=== PATIENT | male | born 1950 | race Caucasian/White ===

== ENCOUNTER 2016-08-09 18:42 | Emergency (ER) | payer MEDICARE, OTHER ==
[2016-08-09 19:08] VITALS: BP 155/73
--- NOTE | 2016-08-09 19:21 | EDM.PDOC ---
[id number]: STONE Time Seen by Provider: 08/09/16 19:05 Source of Information: Reports: Patient, Family History Limitations: Reports: No Limitations - History of Present Illness INITIAL COMMENTS - FREE TEXT/NARRATIVE: 66-year-old male with ongoing intermittent back pain, suprapubic pain and urinary symptoms had a sudden onset of right flank pain one month ago, was evaluated in the clinic and found to have hematuria but also had strained his back at that same time and they took a back x-ray and figured it was from his back injury. He has had some persistent urinary symptoms since and is been treated with antibiotics and Pyridium, was in the clinic yesterday and received refills. His pain is mild at this time. He has not had blood work or CT scans. No fevers or chills. Denies nausea or vomiting at this time. No further trauma. He did have a prostate exam yesterday and was told it was "fine". Onset: Sudden (One month ago) Severity: Moderate Associated Symptoms: Denies: Chest Pain, Fever/Chills, Malaise, Shortness of Breath urinary bladder Pain Score (Numeric/FACES): 8 - Related Data Allergies Allergy/AdvReac Type Severity Reaction Status Date / Time No Known Allergies Allergy Verified 05/21/15 14:50 Home Meds: Home Meds Benazepril [Lotensin] 10 mg PO DAILY 05/21/15 [History] Ranitidine [Zantac] 150 mg PO BID 05/21/15 [History] Sucralfate [Carafate] 1 gm PO QID 05/21/15 [History] Triamcinolone Acetonide [Nasacort AQ [place]] 2 spray NEREIDA DAILY 05/21/15 [History] amLODIPine [Norvasc] 10 mg PO DAILY 05/21/15 [History] Past Medical History HEENT History: Reports: Impaired Vision - Infectious Disease History Infectious Disease History: Reports: Chicken Pox - Past Surgical History Musculoskeletal Surgical History: Reports: Other (See Below) Other Musculoskeletal Surgeries/Procedures:: rotator cuff surgery and neck fusion Social & Family History - Tobacco Use Smoking Status *Q: Never Smoker - Caffeine Use Caffeine Use: Reports: Coffee - Recreational Drug Use Recreational Drug Use: No ED ROS GENERAL - Review of Systems Review Of Systems: See Below Constitutional: Reports: Malaise. Denies: Fever, Chills Respiratory: Denies: Shortness of Breath Cardiovascular: Denies: Chest Pain GI/Abdominal: Reports: Abdominal Pain (Lower abdomen, suprapubic area) : Reports: Dysuria, Frequency Musculoskeletal: Reports: No Symptoms Skin: Reports: No Symptoms Neurological: Reports: No Symptoms ED EXAM, GENERAL - Physical Exam Exam: See Below Exam Limited By: No Limitations General Appearance: Alert, No Apparent Distress Respiratory/Chest: No Respiratory Distress, Lungs Clear Cardiovascular: Regular Rate, Rhythm Back Exam: No: CVA Tenderness (R), CVA Tenderness (L) Neurological: Alert, Oriented Psychiatric: Normal Affect, Normal Mood Skin Exam: Warm, Dry Course - Vital Signs Last Recorded V/S: Last Vital Signs Temp 95.3 F L 08/09/16 19:07 Pulse 70 08/09/16 19:07 Resp 16 08/09/16 19:07 BP 155/73 H 08/09/16 19:07 Pulse Ox 95 08/09/16 19:07 - Orders/Labs/Meds Orders: Active Orders 24 hr Category Date Time Status Abdomen Pelvis wo Cont [CT] Stat Exams 08/09/16 19:37 Taken Labs: Laboratory Tests 08/09/16 08/09/16 08/09/16 Range/Units 19:31 19:31 19:31 WBC 6.9 (4.5-11.0) K/uL RBC 5.08 (4.30-5.90) M/uL Hgb 14.8 (12.0-15.0) g/dL Hct 43.2 (40.0-54.0) % MCV 85 (80-98) fL MCH 29 (27-31) pg MCHC 34 (32-36) % Plt Count 190 (150-400) K/uL Neut % (Auto) 42 (36-66) % Lymph % (Auto) 43 (24-44) % [place] % (Auto) 11 H (2-6) % Eos % (Auto) 3 (2-4) % Baso % (Auto) 1 (0-1) % Sodium 139 L (140-148) mmol/L Potassium 3.8 (3.6-5.2) mmol/L Chloride 104 (100-108) mmol/L Carbon Dioxide 25 (21-32) mmol/L Anion Gap 13.8 (5.0-14.0) mmol/L BUN 18 (7-18) mg/dL Creatinine 1.1 (0.8-1.3) mg/dL Est Cr Clr Drug Dosing 59.61 mL/min Estimated GFR (MDRD) > 60 (>60) Glucose 107 H (74-106) mg/dL Calcium 9.5 (8.5-10.1) mg/dL Urine Color [place] Urine Appearance Clear Urine pH 5.0 (4.5-8.0) Ur Specific [place] 1.015 (1.008-1.030) Urine Protein 500 H (NEGATIVE) mg/dL Urine Glucose (UA) Normal (NEGATIVE) mg/dL Urine Ketones Negative (NEGATIVE) mg/dL Urine Occult Blood Negative (NEGATIVE) Urine Nitrite Positive H (NEGAITVE) Urine Bilirubin Moderate (NEGATIVE) Urine Urobilinogen >=12 H (NORMAL) mg/dL Ur Leukocyte Esterase Negative (NEGATIVE) Urine RBC Not seen (0-5) Urine WBC 0-5 (0-5) Ur Epithelial Cells Rare Amorphous Sediment Not seen Urine Bacteria Rare Urine Mucus Not seen Urine Other Meds: Medications Discontinued Medications Generic Name Dose Route Start Last Admin Trade Name Freq PRN Reason Stop Dose Admin Tamsulosin HCl 0.4 mg 08/09/16 20:26 08/09/16 20:32 Flomax PO 08/09/16 20:27 0.4 mg ONETIME ONE Administration - Re-Assessments/Exams Free Text/Narrative Re-Assessment/Exam: 08/09/16 19:21 A CBC and BMP will be obtained as well as a UA, intention is to get a CT scan after labs return. 08/09/16 22:58 CT scan confirmed a 6 mm distal right ureteral stone with hydronephrosis. White count was normal, creatinine was normal, electrolytes were normal. Patient was given 0.4 mg of Flomax by mouth, a prescription for 5 more additional days and given Toradol and hydrocodone for pain control. He will strain his urine and call Monday if not improving as we may have to set up a urology consultation. Departure - Departure Time of Disposition: 21:26 Disposition: Home, Self-Care 01 Condition: Good Clinical Impression: Kidney stone - Discharge Information Instructions: Kidney Stones, [id number] Referrals: Elmer Wilson MD [Primary Care Provider] - Forms: ED Department Discharge Care Plan Goals: Take 1 Flomax each morning until symptoms are gone. His pain medications as prescribed. Consider calling on Monday to set up a referral if your symptoms are not improving. - My Orders Last 24 Hours: My Active Orders 08/09/16 19:37 Abdomen Pelvis wo Cont [CT] Stat - Assessment/Plan Last 24 Hours: My Active Orders 08/09/16 19:37 Abdomen Pelvis wo Cont [CT] Stat
[2016-08-09] MEDS ORDERED: Tamsulosin 0.4 MG Cap.ER PO ONE (20:26)
== END 2016-08-09 21:26 | disposition home or self-care (01) ==
LOC: JP.ED 18:42
DX: N13.2 Hydronephrosis with renal and ureteral calculous obstruction (principal); Z79.899 Other long term (current) drug therapy
CPT/HCPCS: 36415; 74176; 80048; 81001; 85025; A9270; 99283; 99284-25

== ENCOUNTER 2016-12-11 09:58 | Emergency (ER) | payer MEDICARE, OTHER ==
[2016-12-11 10:33] VITALS: BP 179/75
--- NOTE | 2016-12-11 10:38 | EDM.PDOC ---
ED HPI GENERAL MEDICAL PROBLEM - General Chief Complaint: Neck Problem Stated Complaint: RIGHT NECK PAIN Time Seen by Provider: 12/11/16 10:25 Source of Information: Reports: Patient, Family, Old Records History Limitations: Reports: No Limitations - History of Present Illness INITIAL COMMENTS - FREE TEXT/NARRATIVE: 66 yo male with neck pain on and off for the past at least 10 days. No injury. Has a remote hx of neck surgery. Had a similar problem in the past that got better with therapy. No pain down his arms. Pain not worse with coughing. No relief with ibuprofen. Onset: Unknown/Unsure Onset Date: 12/01/16 Duration: Day(s):, Waxing/Waning Location: Reports: Neck Quality: Reports: Ache, Other (stiffness) Severity: Moderate Improves with: Reports: None Worsens with: Reports: None Context: Reports: Other (pHx of neck surgery in the [facility].) Associated Symptoms: Reports: No Other Symptoms Treatments CARVER HAND: Reports: NSAIDS neck Pain Score (Numeric/FACES): 8 - Related Data Allergies Allergy/AdvReac Type Severity Reaction Status Date / Time No Known Allergies Allergy Verified 12/11/16 10:20 Home Meds: Home Meds Benazepril [Lotensin] 10 mg PO DAILY 05/21/15 [History] Ranitidine [Zantac] 150 mg PO BID 05/21/15 [History] Sucralfate [Carafate] 1 gm PO BID 05/21/15 [History] Triamcinolone Acetonide [Nasacort AQ [place]] 2 spray NEREIDA DAILY 05/21/15 [History] amLODIPine [Norvasc] 10 mg PO DAILY 05/21/15 [History] Acetaminophen/HYDROcodone [[place] 325-5 MG] 0.5 tab PO Q4HR PRN 12/11/16 [History ] Cyclobenzaprine [Flexeril] 10 mg PO BEDTIME PRN #7 tablet 12/11/16 [Rx] Past Medical History HEENT History: Reports: Impaired Vision Cardiovascular History: Reports: High Cholesterol, Hypertension - Infectious Disease History Infectious Disease History: Reports: Chicken Pox - Past Surgical History Musculoskeletal Surgical History: Reports: Other (See Below) Other Musculoskeletal Surgeries/Procedures:: rotator cuff surgery and neck fusion Social & Family History - Tobacco Use Smoking Status *Q: Never Smoker - Caffeine Use Caffeine Use: Reports: Coffee - Recreational Drug Use Recreational Drug Use: No ED ROS GENERAL - Review of Systems Review Of Systems: See Below Constitutional: Reports: No Symptoms HEENT: Reports: No Symptoms Respiratory: Reports: No Symptoms Cardiovascular: Reports: No Symptoms GI/Abdominal: Reports: No Symptoms : Reports: No Symptoms Musculoskeletal: Reports: Neck Pain Skin: Reports: No Symptoms Neurological: Reports: No Symptoms ED EXAM, UPPER BACK/NECK PAIN - Physical Exam Exam: See Below Exam Limited By: No Limitations General Appearance: Alert, WD/WN, No Apparent Distress Eye Exam: Bilateral Eye: Normal Inspection, PERRL Ears Exam: Normal External Exam, Normal Canal, Hearing Grossly Normal Nose Exam: Normal Inspection, Normal Mucousa, No Blood Throat/Mouth Exam: Normal Inspection, Normal Lips, Normal Oropharynx, Normal Voice, No Airway Compromise Head Exam: Atraumatic, Normocephalic Neck Exam: Non-Tender, Normal Inspection, Limited Range of Motion, Stiff Neck. 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, No Motor/Sensory Deficits, Alert, Normal Mood/Affect, Oriented x 3 Psychiatric: Normal Affect, Normal Mood Skin Exam: Normal Color, Warm/Dry, Other (Old, well healed neck surgical scar) Lymphatic: No Adenopathy Course - Vital Signs Last Recorded V/S: Last Vital Signs Temp 35.9 C 12/11/16 10:17 Pulse 69 12/11/16 10:17 Resp 16 12/11/16 10:17 BP 197/94 H 12/11/16 10:17 Pulse Ox 95 12/11/16 10:17 Departure - Departure Time of Disposition: 10:38 Disposition: Home, Self-Care 01 Condition: Good Clinical Impression: Neck pain - Discharge Information Prescriptions: Cyclobenzaprine [Flexeril] 10 mg PO BEDTIME PRN #7 tablet PRN Reason: Pain Referrals: Elmer Wilson MD [Primary Care Provider] - Forms: ED Department Discharge Additional Instructions: Apply moist heat to neck for relief. Take ibuprofen 400 mg every 6 hrs and/or acetaminophen 1000 mg every 6 hrs as needed for pain relief. Take Flexeril at bedtime as needed. Follow up with PT for therapy on your neck. See your doctor for recheck this next week.
== END 2016-12-11 10:53 | disposition home or self-care (01) ==
LOC: JP.ED 09:58
DX: M54.2 Cervicalgia (principal); I10 Essential (primary) hypertension; E78.00 Pure hypercholesterolemia, unspecified; Z98.1 Arthrodesis status; Z79.899 Other long term (current) drug therapy
CPT/HCPCS: 99283

== ENCOUNTER 2018-06-25 06:40 | Emergency (ER) | payer MEDICARE, OTHER ==
[2018-06-25 06:59] VITALS: BP 175/95
--- NOTE | 2018-06-25 07:31 | EDM.PDOC ---
ED HPI GENERAL MEDICAL PROBLEM - General Chief Complaint: ENT Problem Stated Complaint: SOMETHING IN THROAT Time Seen by Provider: 06/25/18 07:28 Source of Information: Reports: Patient History Limitations: Reports: No Limitations - History of Present Illness INITIAL COMMENTS - FREE TEXT/NARRATIVE: pt has a sensation that he has mucous hanging in the back of his throat. He did just finish a course of antibiotics, He did eat some very hot food and felt like he burnt the back of his throat 4 or 5 days ago. He has not had a fever. Duration: Hour(s): Location: Reports: Neck, Other ( throat. ) Associated Symptoms: Reports: Other ( choking sensation from the swelling in the throat. 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 (see below) - Related Data Allergies Allergy/AdvReac Type Severity Reaction Status Date / Time No Known Allergies Allergy Verified 12/11/16 10:20 Home Meds: Home Meds Benazepril [Lotensin] 10 mg PO DAILY 05/21/15 [History] Sucralfate [Carafate] 1 gm PO BID 05/21/15 [History] Triamcinolone Acetonide [Nasacort AQ [place]] 2 spray NEREIDA DAILY 05/21/15 [History] amLODIPine [Norvasc] 10 mg PO DAILY 05/21/15 [History] Omeprazole Magnesium [Prilosec Otc] 20 mg PO DAILY 01/01/18 [History] Past Medical History HEENT History: Reports: Impaired Vision Cardiovascular History: Reports: High Cholesterol, Hypertension - Infectious Disease History Infectious Disease History: Reports: Chicken Pox - Past Surgical History Musculoskeletal Surgical History: Reports: Other (See Below) Other Musculoskeletal Surgeries/Procedures:: rotator cuff surgery and neck fusion Social & Family History - Tobacco Use Smoking Status *Q: Never Smoker - Caffeine Use Caffeine Use: Reports: Coffee - Recreational Drug Use Recreational Drug Use: No ED ROS ENT - Review of Systems Review Of Systems: See Below Constitutional: Reports: No Symptoms HEENT: Reports: Throat Pain, Throat Swelling Respiratory: Reports: No Symptoms Cardiovascular: Reports: No Symptoms Endocrine: Reports: No Symptoms GI/Abdominal: Reports: No Symptoms : Reports: No Symptoms Musculoskeletal: Reports: No Symptoms Skin: Reports: No Symptoms Neurological: Reports: No Symptoms ED EXAM, ENT - Physical Exam Exam: See Below Text/Narrative:: pt has marked redness and swelling of the uvula and the top of the mouth--roof area that is postby the throat. Exam Limited By: No Limitations General Appearance: Alert, Anxious Ears: Normal TMs Nose: Normal Inspection Mouth/Throat: Other (pt has marked swelling of the uvula and the post roof of the mouth was very red. Pt did just finish a course of antibiotics. ) Head: Atraumatic Neck: Normal Inspection Respiratory/Chest: No Respiratory Distress Course - Vital Signs Last Recorded V/S: Last Vital Signs Temp 35.5 C 06/25/18 06:58 Pulse 80 06/25/18 06:58 Resp 16 06/25/18 06:58 BP 175/95 H 06/25/18 06:58 Pulse Ox 96 06/25/18 06:58 - Orders/Labs/Meds Orders: Active Orders 24 hr Category Date Time Status CULTURE STREP A CONFIRMATION [RM] Stat Lab 06/25/18 07:28 Results STREP SCRN A RAPID W CULT CONF [] Stat Lab 06/25/18 07:28 Results Meds: Medications Discontinued Medications Generic Name Dose Route Start Last Admin Trade Name Kathryn PRN Reason Stop Dose Admin Lidocaine HCl 30 ml/ Al 0 ml 06/25/18 08:15 06/25/18 08:08 Hydroxide/Mg Hydroxide 30 ml/ PO 06/25/18 08:16 15 ml Diphenhydramine HCl 75 mg ONETIME ONE Administration - Re-Assessments/Exams Free Text/Narrative Re-Assessment/Exam: 06/25/18 08:23 pt had a neg strept and briana. Magic mouth wash was given to the pt and he irrigatyed his throat with that. Departure - Departure Time of Disposition: 08:18 Disposition: Home, Self-Care 01 Condition: Fair Clinical Impression: Swollen uvula, Acute pharyngitis - Discharge Information Instructions: Pharyngitis, [id number] Referrals: PCP,None [Primary Care Provider] - Forms: ED Department Discharge Care Plan Goals: magic mouth wash gargle three or 4 times daily, keflex 500mg tid, avoid acid and real salty foods. - My Orders Last 24 Hours: My Active Orders 06/25/18 07:28 CULTURE STREP A CONFIRMATION [RM] Stat STREP SCRN A RAPID W CULT CONF [RM] Stat - Assessment/Plan Last 24 Hours: My Active Orders 06/25/18 07:28 CULTURE STREP A CONFIRMATION [RM] Stat STREP SCRN A RAPID W CULT CONF [RM] Stat
[2018-06-25] MEDS ORDERED: Lidocaine 2% 30 ML, Alum Hydrox/Mag Hydrox/Simeth 30 ML, diphenhydrAMINE 75 MG PO ONE ×6 (07:49→08:15)
== END 2018-06-25 08:28 | disposition home or self-care (01) ==
LOC: JP.ED 06:40
DX: J02.9 Acute pharyngitis, unspecified (principal); E78.00 Pure hypercholesterolemia, unspecified; I10 Essential (primary) hypertension; Z79.899 Other long term (current) drug therapy
CPT/HCPCS: 87081; 87220; 87430; 99283; A9270

== ENCOUNTER 2020-12-10 14:15 | Emergency (ER) | payer MEDICARE, OTHER ==
[2020-12-10 14:31] VITALS: BP 174/88; PULSE 85
--- NOTE | 2020-12-10 15:04 | EDM.PDOC ---
ED HPI GENERAL MEDICAL PROBLEM - General Chief Complaint: Head Injury Stated Complaint: FELL AND HIT HIS HEAD Time Seen by Provider: 12/10/20 14:46 Source of Information: Reports: Patient, Family, RN Notes Reviewed History Limitations: Reports: No Limitations - History of Present Illness INITIAL COMMENTS - FREE TEXT/NARRATIVE: 7-year-old gentleman presents emergency department day following a fall with head injury, he was on his dump trailer fell backwards hit his head on the dumpster next to the dump trailer on his way down. There was no loss of consciousness no vomiting he does have a bruise on the back of his head. He states he feels his normal self except for a slight headache he is not on any blood thinners. - Related Data Allergies Allergy/AdvReac Type Severity Reaction Status Date / Time No Known Allergies Allergy Verified 12/10/20 14:38 Home Meds: Home Meds Sucralfate [Carafate] 1 gm PO BID 05/21/15 [History] Famotidine 20 mg PO DAILY 12/10/20 [History] Irbesartan [Avapro] 75 mg PO DAILY 12/10/20 [History] Past Medical History HEENT History: Reports: Impaired Vision Cardiovascular History: Reports: High Cholesterol, Hypertension - Infectious Disease History Infectious Disease History: Reports: Chicken Pox - Past Surgical History Neurological Surgical History: Reports: Spinal Fusion Musculoskeletal Surgical History: Reports: Other (See Below) Other Musculoskeletal Surgeries/Procedures:: rotator cuff surgery and neck fusion Social & Family History - Tobacco Use Tobacco Use Status *Q: Never Tobacco User - Caffeine Use Caffeine Use: Reports: Coffee, Energy Drinks - Recreational Drug Use Recreational Drug Use: No ED ROS GENERAL - Review of Systems Review Of Systems: See Below Constitutional: Reports: No Symptoms HEENT: Reports: Other (Head injury) Respiratory: Reports: No Symptoms Cardiovascular: Reports: No Symptoms GI/Abdominal: Reports: No Symptoms Skin: Reports: Wound Neurological: Reports: No Symptoms ED EXAM, HEAD INJURY - Physical Exam Exam: See Below Exam Limited By: No Limitations General Appearance: Alert, WD/WN, No Apparent Distress Head: Atraumatic, Normocephalic Nexus Criteria: No: Posterior, Midline Cervical Tenderness, Evidence of Intoxication, Altered Level of Consciousness, Focal Neurological Deficit, Painful Distraction Injuries Eyes: Bilateral Eye: EOMI, Normal Inspection, PERRL Ears: Normal External Exam, Normal Canal, Hearing Grossly Normal, Normal TMs Nose: Normal Inspection, Normal Mucousa, No Blood Throat/Mouth: Normal Inspection, Normal Lips, Normal Teeth, Normal Gums, Normal Oropharynx, Normal Voice, No Airway Compromise Neck: Non-Tender, Full Range of Motion, Normal Alignment, Normal Inspection Respiratory: No Respiratory Distress Neurologic: refueling ramp attendant II-XII nml As Tested, No Motor/Sensory Deficits, Oriented x 3 Course - Vital Signs Last Recorded V/S: Last Vital Signs Temp 98.1 F 12/10/20 14:34 Pulse 85 12/10/20 14:34 Resp 16 12/10/20 14:34 BP 174/88 H 12/10/20 14:34 Pulse Ox 97 12/10/20 14:34 Departure - Departure Time of Disposition: 15:03 Disposition: Home, Self-Care 01 Condition: Fair Clinical Impression: Head injury Qualifiers: Encounter type: initial encounter Qualified Code(s): S09.90XA - Unspecified injury of head, initial encounter - Discharge Information Instructions: Head Injury, Adult Referrals: Elmer Wilson MD [Primary Care Provider] - Additional Instructions: Follow the head injury guidelines, please followup with your primary care provider in 3-5 days if not better, please call return to the emergency department with worsening of symptoms. Sepsis Event Note (ED) - Evaluation Sepsis Screening Result: No Definite Risk - Focused Exam Vital Signs: Vital Signs Temp Pulse Resp BP Pulse Ox 12/10/20 14:34 98.1 F 85 16 174/88 H 97 12/10/20 14:29 98.1 F 85 16 174/88 H 97 - Assessment/Plan Plan: Assessment Acuity = acute Site and laterality = head injury Etiology = secondary to a fall Manifestations = none Location of injury = Home Lab values = none Plan Did discuss options with him including imaging review of guidelines he elected to do watchful waiting at this time will return to the emergency department with any change or worsening of symptoms This note was dictated using [employer] voice recognition software please call with any questions on syntax or grammar.
== END 2020-12-10 15:40 | disposition home or self-care (01) ==
LOC: JP.ED 14:15
DX: S09.90XA Unspecified injury of head, initial encounter (principal); E78.00 Pure hypercholesterolemia, unspecified; I10 Essential (primary) hypertension; W18.09XA Striking against other object with subsequent fall, initial encounter
CPT/HCPCS: 99283

== ENCOUNTER 2020-12-11 10:05 | Emergency (ER) | payer MEDICARE, OTHER ==
--- NOTE | 2020-12-11 10:29 | EDM.PDOC ---
ED HPI GENERAL MEDICAL PROBLEM - General Chief Complaint: Head Injury Stated Complaint: COMPLICATIONS FROM FALL 12/10/20 Time Seen by Provider: 12/11/20 10:25 Source of Information: Reports: Patient, Family, RN Notes Reviewed History Limitations: Reports: No Limitations - History of Present Illness INITIAL COMMENTS - FREE TEXT/NARRATIVE: 70-year-old gentleman presents emergency department today complaint of headache and nausea, he was evaluated by myself yesterday for head injury we discussed possibility of doing imaging studies he declined at that time he did try and go to the clinic today but they described his symptoms he was sent to the emergency department for further evaluation. - Related Data Allergies Allergy/AdvReac Type Severity Reaction Status Date / Time No Known Allergies Allergy Verified 12/11/20 10:17 Home Meds: Home Meds Sucralfate [Carafate] 1 gm PO BID 05/21/15 [History] Famotidine 20 mg PO DAILY 12/10/20 [History] Irbesartan [Avapro] 75 mg PO DAILY 12/10/20 [History] Past Medical History HEENT History: Reports: Impaired Vision Cardiovascular History: Reports: High Cholesterol, Hypertension - Infectious Disease History Infectious Disease History: Reports: Chicken Pox - Past Surgical History Neurological Surgical History: Reports: Spinal Fusion Musculoskeletal Surgical History: Reports: Other (See Below) Other Musculoskeletal Surgeries/Procedures:: rotator cuff surgery and neck fusion Social & Family History - Tobacco Use Tobacco Use Status *Q: Never Tobacco User - Caffeine Use Caffeine Use: Reports: Coffee - Recreational Drug Use Recreational Drug Use: No ED ROS GENERAL - Review of Systems Review Of Systems: See Below Constitutional: Reports: No Symptoms GI/Abdominal: Reports: Nausea Neurological: Reports: Headache ED EXAM, HEAD INJURY - Physical Exam Exam: See Below Exam Limited By: No Limitations General Appearance: Alert, WD/WN, No Apparent Distress Respiratory: No Respiratory Distress 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, No Motor/Sensory Deficits, Alert, Normal Mood/Affect, Oriented x 3 Course - Vital Signs Last Recorded V/S: Last Vital Signs Temp 98.1 F 12/11/20 10:20 Pulse 80 12/11/20 10:20 Resp 14 12/11/20 10:20 BP 152/89 H 12/11/20 10:20 Pulse Ox 99 12/11/20 10:20 Departure - Departure Time of Disposition: 11:24 Disposition: Home, Self-Care 01 Condition: Fair Clinical Impression: Concussion syndrome - Discharge Information Instructions: Post-Concussion Syndrome Referrals: Elmer Wilson MD [Primary Care Provider] - Forms: ED Department Discharge Additional Instructions: Follow-up with primary care as needed, we do have a concussion clinic available at the hospital if needed call or return to the emergency department with worsening of symptoms Sepsis Event Note (ED) - Evaluation Sepsis Screening Result: No Definite Risk - Focused Exam Vital Signs: Vital Signs Temp Pulse Resp BP Pulse Ox 12/11/20 10:20 98.1 F 80 14 152/89 H 99 - Assessment/Plan Plan: Assessment Acuity = acute Site and laterality = concussion syndrome Etiology = head injury Manifestations = none Location of injury = Home Lab values = CT scan shows no acute process Plan Follow-up primary care as needed This note was dictated using [employer] voice recognition software please call with any questions on syntax or grammar.
[2020-12-11 11:02] VITALS: BP 152/89; PULSE 80
--- NOTE | 2020-12-11 11:03 | CT ---
Head wo Cont CLINICAL HISTORY: Head injury COMPARISON: None TECHNIQUE: Transverse scans were obtained from the base of the skull through the vertex without IV contrast on a multislice, multidetector CT scanner. Auto dosage reduction and iterative reconstruction techniques employed. FINDINGS: No focal abnormal parenchymal density is identified.. There is no mass effect, hemorrhage, or extraaxial collection. There is scattered periventricular and subcortical lucency bilaterally The basal cisterns and sulci over the convexities are mildly prominent. The ventricles are normal for age. There is some irregular density in the subcutaneous tissues of the scalp most notable over the superior parietal and occipital regions. IMPRESSION: Chronic ischemic microvascular changes No acute intracranial process
== END 2020-12-11 12:12 | disposition home or self-care (01) ==
LOC: JP.ED 10:05
DX: F07.81 Postconcussional syndrome (principal); I10 Essential (primary) hypertension; Z79.899 Other long term (current) drug therapy
CPT/HCPCS: 70450; 70450-26; 99284-25

== ENCOUNTER 2021-06-23 08:59 | Emergency (ER) | payer MEDICARE, OTHER ==
[2021-06-23] MEDS ORDERED: Sodium Chloride 0.9% 10 ML Syringe FLUSH PRN (09:18)
[2021-06-23] MEDS ORDERED: Aspirin 81 MG Tab.Chew PO ONE (09:18)
[2021-06-23] MEDS ORDERED: Morphine 4 MG/ML Syringe IVPUSH PRN (09:18)
[2021-06-23] MEDS ORDERED: Nitroglycerin 0.4 MG Tab.SL SL PRN (09:18)
[2021-06-23 11:48] VITALS: BP 156/85; PULSE 69
== END 2021-06-23 12:55 | disposition home or self-care (01) ==
LOC: JP.ED 08:59
DX: R07.89 Other chest pain (principal); I25.10 Atherosclerotic heart disease of native coronary artery without angina pectoris; I10 Essential (primary) hypertension; Z79.899 Other long term (current) drug therapy
CPT/HCPCS: 36415; 71045; 80053; 84484; 85025; 93005; 93010; 99283; 99285-25; A9270-GY

== ENCOUNTER 2023-11-14 06:58 | Emergency (ER) | payer MEDICARE, OTHER ==
[2023-11-14 07:36] LABS: BASOPHILS ABSOLUTE AUTO 0.03 K/uL (0.00-0.10); BASOPHILS PERCENT AUTO 0.6 % (0.1-1.3); EOSINOPHILS ABSOLUTE AUTO 0.18 K/uL (0.00-0.40); EOSINOPHILS PERCENT AUTO 3.5 % (0.0-5.4); HEMATOCRIT 42.7 % (38.4-49.7); HEMOGLOBIN 14.7 g/dL (12.9-16.9); IMMATURE GRAN PERCENT AUTO 0.2 % (0.0-0.7); LYMPHOCYTES ABSOLUTE AUTO 1.96 K/uL (0.8-3.3); LYMPHOCYTES PERCENT AUTO 37.8 % (11.4-47.7); MEAN CORPUSCULAR HEMOGLOBIN 30.1 pg (31.6-35.5); MEAN CORPUSCULAR HGB CONC 34.4 g/dL (31.6-35.5); MEAN CORPUSCULAR VOLUME 87.3 fL (81.4-99.0); MONOCYTES ABSOLUTE AUTO 0.66 K/uL (0.20-0.90); MONOCYTES PERCENT AUTO 12.7 % (3.3-12.6); NEUTROPHILS ABSOLUTE AUTO 2.35 K/uL (1.0-7.6); NEUTROPHILS PERCENT AUTO 45.2 % (40.0-78.1); PLATELET COUNT,PLT 195 K/uL (130-375); RED BLOOD CELL COUNT 4.89 M/uL (4.14-5.76); WHITE BLOOD CELL COUNT,WBC 5.2 K/uL (3.2-11.0)
[2023-11-14 07:41] LABS: IMMATURE GRAN ABSOLUTE AUTO 0.01 K/uL (0.00-0.23)
[2023-11-14 07:48] LABS: A/G RATIO 1.1 (1.2-2.2); ALANINE AMINOTRANSFERASE,ALT 30 U/L (12-78); ALBUMIN 3.9 g/dL (3.4-5.0); ALKALINE PHOSPHATASE 72 U/L (46-116); ASPARTATE AMNIOTRANSFERASE,AST 19 U/L (15-37); BILIRUBIN TOTAL 0.3 mg/dL (0.2-1.0); BLOOD UREA NITROGEN,BUN 15 mg/dL (7-18); CALCIUM 9.5 mg/dL (8.5-10.1); CARBON DIOXIDE,CO2 26 mmol/L (21-32); CHLORIDE,CL 103 mmol/L (100-108); CREATININE 1.2 mg/dL (0.8-1.3); EST CRCL DRUG DOSING (CG) 48.58 mL/min; ESTIMATED GFR 64 mL/min (>60); GLUCOSE RANDOM 123 mg/dL (74-106); POTASSIUM,K 4.2 mmol/L (3.6-5.2); PROTEIN TOTAL,TP 7.4 g/dL (6.4-8.2); SODIUM,NA 138 mmol/L (140-148); TROPONIN I HIGH SENSITIVITY 7.2 pg/mL (<=60.3)
[2023-11-14 07:49] LABS: ANION GAP 13.2 mmol/L (5.0-14.0)
[2023-11-14 10:05] VITALS: BP 159/84; PULSE 85
== END 2023-11-14 10:38 | disposition home or self-care (01) ==
LOC: JP.ED 06:58
DX: R07.9 Chest pain, unspecified (principal); I25.10 Atherosclerotic heart disease of native coronary artery without angina pectoris; E78.00 Pure hypercholesterolemia, unspecified; I10 Essential (primary) hypertension; Z88.5 Allergy status to narcotic agent; Z88.8 Allergy status to other drugs, medicaments and biological substances; Z79.899 Other long term (current) drug therapy
CPT/HCPCS: 36415; 71046; 71046-26; 80053; 84484; 85025; 93005; 99285

== ENCOUNTER 2024-10-30 16:02 | Emergency (ER) | payer MEDICARE, OTHER ==
[2024-10-30] MEDS: Sodium Chloride 0.9% 10 ML Syringe FLUSH ONE (18:11)
[2024-10-30] MEDS: Iopamidol 755 Mg/ML 100 ML Bottle IV ONE (18:11)
[2024-10-30 18:24] LABS: APPEARANCE,URINE CLEAR (CLEAR); GLUCOSE,URINE NEGATIVE (NEGATIVE); OCCULT BLOOD,URINE NEGATIVE (NEGATIVE)
[2024-10-30 19:01] VITALS: PULSE 84
[2024-10-30 19:33] VITALS: BP 158/75
== END 2024-10-30 19:20 | disposition home or self-care (01) ==
LOC: JP.ED 16:02
DX: R29.898 Other symptoms and signs involving the musculoskeletal system (principal); I25.10 Atherosclerotic heart disease of native coronary artery without angina pectoris; E78.00 Pure hypercholesterolemia, unspecified; I10 Essential (primary) hypertension; Z88.5 Allergy status to narcotic agent; Z88.8 Allergy status to other drugs, medicaments and biological substances; Z79.899 Other long term (current) drug therapy
CPT/HCPCS: 70450; 70496; 70498; 81003; 82947; 99284; A9270; Q9967